=== PATIENT | female | born 1985 | race Caucasian/White ===

== ENCOUNTER 2021-06-08 19:16 | Emergency (ER) | payer BC ==
[2021-06-08] MEDS ORDERED: Lidocaine 1% 10 ML MDV INJECT ONE (19:46)
[2021-06-08] MEDS ORDERED: Diphtheria,Pertussis(Acell),Tetanus Vaccine 0.5 ML Syringe IM ONE (19:46)
== END 2021-06-08 20:25 | disposition home or self-care (01) ==
LOC: JD.ED 19:16
DX: S61.211A Laceration without foreign body of left index finger without damage to nail, initial encounter (principal); Z23 Encounter for immunization; W26.8XXA Contact with other sharp object(s), not elsewhere classified, initial encounter
CPT/HCPCS: 12001; 90471; 90715; 99282-25; 99283